=== PATIENT | male | born 1960 | race Caucasian/White ===

== ENCOUNTER → 2019-02-21 | Outpatient (CLI) | payer MEDICARE ==
--- NOTE | 2019-02-21 07:57 | US ---
EXAMINATION TYPE: US abdomen complete DATE OF EXAM: 02/21/2019 COMPARISON: 08/21/2015 CLINICAL HISTORY: R10.84 abd pain. Generalized pain. NPO. GB removed x 2 years ago. EXAM MEASUREMENTS: Liver Length: 17.0 cm CBD: 0.5 cm Spleen: 10.3 cm Right Kidney: 11.5 x 5.7 x 5.7 cm Left Kidney: 11.9 x 4.8 x 5.0 cm Pancreas: Tail obscured by overlying bowel gas Liver: There is increased echogenicity of the hepatic parenchyma with diminished visualization of th e portal triads most commonly relating to hepatic steatosis and limiting evaluation for underlying he patic masses. Right lobe cystic appearing lesion = 1.1 x 1.1 x 1.1 cm Gallbladder: Surgically absent Evidence for sonographic Felder's sign: neg CBD: wnl Spleen: wnl Right Kidney: wnl Left Kidney: wnl Upper IVC: wnl Abd Aorta: Limited visualization due to overlying bowel gas The liver is homogenous. The intrahepatic portion of the IVC and proximal abdominal aorta are within normal limits. Common bile duct is unremarkable. The visualized portions of the pancreas are homoge nous. The spleen is unremarkable. Kidneys are symmetric and free of hydronephrosis. No renal lesio ns are seen. IMPRESSION: 1. Sonographic findings most commonly related to hepatic steatosis and redemonstration of a simple ap pearing hepatic cyst. 2. Surgical absence of the gallbladder.
== END | disposition home or self-care (01) ==
LOC: RADUSWWP 06:59
PROVIDERS: ATTEND Internal Medicine
DX: R10.84 Generalized abdominal pain (principal); Z90.49 Acquired absence of other specified parts of digestive tract
CPT/HCPCS: 76700

== ENCOUNTER → 2023-02-17 | Outpatient (CLI) | payer MEDICARE ==
--- NOTE | 2023-02-17 10:23 | MR ---
EXAMINATION TYPE: MR thoracic spine wo con DATE OF EXAM: 02/17/2023 COMPARISON: NONE HISTORY: Chronic mid back pain. TECHNIQUE: Multiplanar, multisequence imaging of thoracic spine is performed without contrast FINDINGS: Spinal cord shows normal course, caliber, and signal as it courses the thoracic spine. Huber tebral body heights and alignment are satisfactory. There is [id number] disc space narrowing at T7-T8 level. Bone marrow signal intensity is preserved. Posterior disc herniation at T4-T5 level eff aces the anterior thecal sac. Review of the axial images shows additional right paracentral disc protrusion effacing the anterolate ral thecal sac at T5-T6 level on axial image 5 series 801. No suspicious incidental finding in the vi sualized upper abdomen or thorax is seen. 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
== END | disposition home or self-care (01) ==
LOC: RADMRIMAIN 09:11
PROVIDERS: ATTEND Psychiatry & Neurology Neurology
DX: M51.24 Other intervertebral disc displacement, thoracic region (principal); M51.34 Other intervertebral disc degeneration, thoracic region; M48.04 Spinal stenosis, thoracic region
CPT/HCPCS: 72146